=== PATIENT | male | born 1990 | race Caucasian/White ===

== ENCOUNTER 2022-08-06 12:53 | Emergency (ER) | payer BC, SELFPAY ==
[2022-08-06 13:45] VITALS: BP 118/68; PULSE 62; RESP 18; TEMP 36.7; O2SAT 100
--- NOTE | 2022-08-06 14:49 | ED.MALEGU ---
HPI - Male Genitourinary General Chief complaint: Urogenital-Male Stated complaint: uti Time Seen by Provider: 08/06/22 14:49 Source: patient and RN notes reviewed Mode of arrival: ambulatory Limitations: no limitations History of Present Illness HPI Narrative: 31-year-old male presented for complaint of burning with urination, itching, and cloudy urine for 3 days. He denies any concern for STD. He denies abdominal pain, flank pain, urethral discharge, rash, lesions, or hematuria. Denies n/v/d/f/c. Related Data Allergies Allergy/AdvReac Type Severity Reaction Status Date / Time No Known Allergies Allergy Verified 08/06/22 14:16 Review of Systems Review of Systems: CONSTITUTIONAL: Denies body aches, fever, chills, or sweats. CARDIOVASCULAR: Denies chest pain, palpitations, or edema. RESPIRATORY: Denies cough or dyspnea. GASTROINTESTINAL: Denies abdominal pain, nausea, vomiting, or diarrhea. GENITOURINARY: Reports dysuria, denies frequency, urgency, hematuria, flank pain SKIN: Denies rash, itching, or wounds. MUSCULOSKELETAL: Denies back pain or myalgia. PMFSH Comments At time of signature, I have reviewed and agree with nursing past medical, surgical, social and family history unless otherwise noted. Please see nursing chart for further information. There is no relevant family history pertinent to the presenting complaint Exam Narrative: GENERAL: Well-appearing and in no acute distress. ENT: Mucous membranes pink and moist. NECK: Normal AROM. Supple. CHEST: No respiratory distress. Clear to auscultation. HEART: Regular rate and rhythm. ABDOMEN: Soft, nontender, nondistended, normal active bowel sounds. No CVA tenderness SKIN: Warm, dry, no rash. Course Course Emergency Course: Patient is aware of diagnosis, understands and agrees to treatment plan. Anticipatory guidance given. Patient agrees to follow-up as directed and is aware of reasons to seek care at the emergency department. Portions of this record may have been created with voice recognition software Level of Care: Express Care Visit Vital Signs Vital signs: Vital Signs Temperature 98.1 F 08/06/22 13:45 Pulse Rate 62 08/06/22 13:45 Respiratory Rate 18 08/06/22 13:45 Blood Pressure 118/68 08/06/22 13:45 Pulse Oximetry 100 08/06/22 13:45 Oxygen Delivery Room Air 08/06/22 13:45 Temperature 98.1 F 08/06/22 13:45 Pulse Rate 62 08/06/22 13:45 Respiratory Rate 18 08/06/22 13:45 Blood Pressure 118/68 08/06/22 13:45 Pulse Oximetry 100 08/06/22 13:45 Oxygen Delivery Room Air 08/06/22 13:45 Reviewed MDM - Male Genitourinary MDM Narrative Medical decision making narrative: Results of urine dip reviewed with patient. Advised supportive measures and signs/symptoms to go to the ER. Pt is appropriate for outpt treatment and f/u. Differential Diagnosis Differential diagnosis: Likely urinary tract infection and urethritis Discharge Plan Discharge Clinical Impression: Dysuria Patient Disposition: Home, Self-Care Condition: Stable Instructions: Antibiotic Form, Urinary Tract Infection in Men (ED) Additional Instructions: Your urine will be sent of for a culture to determine if bacteria is causing your symptoms. If the culture shows a UTI, you will be notified and an antibiotic will be called in for you. Increase water intake you will need to follow up with your PCP for further evaluation and treatment if symptoms persist, call today to schedule follow-up appointment. Go to the ER for any worsening symptoms or concerns. Follow-up/Referrals: UNKNOWN,DOCTOR [Primary Care Provider] - Time of Disposition: 15:20
== END 2022-08-06 15:25 | disposition home or self-care (01) ==
PROVIDERS: Emergency Provider Nurse Practitioner Family
DX: R30.0 Dysuria (principal)
CPT/HCPCS: 87086; 99212; G0463

== ENCOUNTER 2024-02-14 17:25 | Emergency (ER) | payer BC, SELFPAY ==
[2024-02-14 17:39] VITALS: BP 146/95; PULSE 78; RESP 16; TEMP 36.8; O2SAT 100
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
[2024-02-14] MEDS: LIDOCAINE HCL 1% LOCAL INJ 2 ML AMPUL 3 ML INFILTRATE (18:25)
== END 2024-02-14 18:45 | disposition home or self-care (01) ==
PROVIDERS: Emergency Provider Nurse Practitioner Family
DX: S01.81XA Laceration without foreign body of other part of head, initial encounter (principal); S01.512A Laceration without foreign body of oral cavity, initial encounter; V86.06XA Driver of dirt bike or motor/cross bike injured in traffic accident, initial encounter; Z98.52 Vasectomy status
CPT/HCPCS: 12011; 99212; G0463